=== PATIENT | male | born 1945 | race Two or more races ===

== ENCOUNTER 2016-06-04 08:13 | Day surgery (SDC) | payer OTHER ==
[2016-06-01 16:58] VITALS: BMI 31.6
[~2016-06-04] VITALS: Ht 165.1 cm; Wt 88.7 kg
[2016-06-04] VITALS (10 sets, daily range): BP systolic 119–151; BP diastolic 61–71; PULSE 64–79; RESP 12–37; Ht 165.1 cm; Wt 88.7 kg
[~2016-06-04 08:13] MED LIST: CEFAZOLIN 1 GM/50 ML (PMX) 50 ML IVPB SCH
[2016-06-04 09:05] LABS: ADD SCAN DIFF NO
[2016-06-04 09:17] LABS: BASOPHILS % 0.4 % (0.0-2.0); EOSINOPHILS # 0.1 10^3/ul (0.0-0.5); EOSINOPHILS % 1.6 % (0.0-7.0); HEMATOCRIT 36.5 % (42.0-52.0); HEMOGLOBIN 12.4 g/dl (14.0-18.0); LYMPHOCYTES # 1.8 10^3/ul (0.8-2.9); LYMPHOCYTES % 31.8 % (15.0-51.0); MEAN CORPUSCULAR HEMOGLOBIN 31.6 pg (29.0-33.0); MEAN CORPUSCULAR VOLUME 92.9 fl (82.0-101.0); MEAN PLATELET VOLUME 9.4 fl (7.4-10.4); MONOCYTE # 0.4 10^3/ul (0.3-0.9); MONOCYTES % 7.1 % (0.0-11.0); NEUTROPHIL # 3.2 10^3/ul (1.6-7.5); NEUTROPHILS % 58.6 % (39.0-77.0); PLATELET COUNT 134 10^3/UL (140-415); RED BLOOD COUNT 3.93 10^6/ul (4.70-6.10); RED CELL DISTRIBUTION WIDTH 14.4 % (11.5-14.5); WHITE BLOOD COUNT 5.5 10^3/ul (4.8-10.8)
[2016-06-04] MEDS ORDERED: FER325 PO (09:31)
[2016-06-04] MEDS ORDERED: PRED5 PO (09:31)
[2016-06-04] MEDS ORDERED: ABIR250T PO (09:31)
[2016-06-04 09:33] LABS: ALBUMIN 3.7 g/dl (3.3-4.9); ALBUMIN/GLOBULIN RATIO 1.42; BILIRUBIN,INDIRECT 0.6 mg/dl (0-1.1); BILIRUBIN,TOTAL 0.6 mg/dl (0.2-1.3); TOTAL PROTEIN 6.3 g/dl (6.1-8.1)
[2016-06-04 09:35] LABS: CALCIUM 8.9 mg/dl (8.4-10.2); CREATININE 1.08 mg/dl (0.61-1.24); POTASSIUM 4.5 mmol/L (3.5-5.1)
[2016-06-04 09:40] LABS: INR 0.91; PARTIAL THROMBOPLASTIN TIME 27.3 Sec (25.0-35.0); PROTIME 12.2 Sec (12.2-14.2)
--- NOTE | 2016-06-04 09:51 | RADRPT ---
PROCEDURE: XR Chest. CLINICAL INDICATION: Preop. TECHNIQUE: Single frontal portable chest was obtained. COMPARISON: None. FINDINGS: Cardiomediastinal silhouette appears normal There are atherosclerotic calcifications in the thoracic aorta. Pulmonary vasculature appears normal. Lung larkin appear clear. Costophrenic angles are well defined. The osseous elements appear intact. IMPRESSION: 1. Atherosclerotic calcifications in the thoracic aorta. 2. No evidence for active cardiopulmonary disease. RPTAT: AAC Physician Jacob Date Time Electronically viewed and signed by Physician Jacob on 06/04/2016 09:51 /
[2016-06-04] MEDS ORDERED: FENTAnyl 50 MCG/ML VIAL ONE (11:17)
[2016-06-04] MEDS ORDERED: ERTAPENEM SODIUM 1 GM in SOD CHLORIDE 0.9% 100 ML IVPB SCH (11:30)
[2016-06-04] MEDS ORDERED: DIPHENHYDRAMINE 50 MG INJ IV PRN (12:00)
[2016-06-04] MEDS ORDERED: LABETALOL HCL 20MG INJ IV PRN (12:00)
[2016-06-04] MEDS ORDERED: HYDROmorphONE (0.2 MG/ML) 10ML SYG IV PRN ×3 (12:00)
[2016-06-04] MEDS ORDERED: FENTAnyl 50 MCG/ML VIAL IV PRN (12:00)
[2016-06-04] MEDS ORDERED: MEPERIDINE 25 MG INJ IV PRN (12:00)
--- NOTE | 2016-06-04 12:32 | PDOCDIS ---
Discharge Instructions CONDITION Patient Condition: Good HOME CARE INSTRUCTIONS: Diet Instructions: Regular ACTIVITY: Activity Restrictions: No Restrictions Bathing Restrictions: Shower FOLLOW UP/APPOINTMENTS Appointments Tomorrow. 8:30 am for removal of cox catheter OTHER ORDERS: Other Orders: dc to home when awake and stable. Resume all preop meds without any changes. Office to call patient for continuation of IV antibiotics. LUPE PEARCE Jun 04, 2016 12:32
--- NOTE | 2016-06-04 12:52 | HP ---
DATE OF ADMISSION: 06/04/2016 HISTORY OF PRESENT ILLNESS: He is a 70-year-old male with prostate cancer diagnosed approximately 4 years ago in [facility]. He underwent a radical prostatectomy which has been complicated by retained sup rapubic tube/drain and a bladder stone with subsequent secondary recurrent multidrug-resistant urina ry tract infection. He presents today for endoscopic holmium laser lithotripsy of the 3 cm bladder stone. He is currently receiving Invanz. PAST MEDICAL HISTORY: Prostate cancer. PAST SURGICAL HISTORY: Status post radical prostatectomy, status post orchiectomy. ALLERGIES: NONE. MEDICATIONS: 1. Iron sulfate. 2. Prednisone. 3. Zytiga. PHYSICAL EXAMINATION: LUNGS: Good breath sounds bilaterally. HEART: Regular rate and rhythm. ABDOMEN: Soft, nondistended, nontender. No palpable masses. Flank, no CVA tenderness, no masses. ABDOMEN: Soft, nondistended. In the infrapubic region, a foreign body is palpable. GENITALIA: Normal shaft of penis. Scrotum is status post orchiectomy. IMPRESSION: Prostate cancer with retained infrapubic tube that does not appear to be entering into the bladder and noted to have recurrent urinary tract infections which have been associated with a b ladder stone. PLAN: Continue Invanz of which he will receive 1 g prior to surgery and subsequently for the next 2 days, endoscopic Holmium laser lithotripsy, and removal of bladder stone, pending clinical course, then would suggest removal of foreign body at a secondary sitting. How the procedure is performed, potential complications including, but not limited to, general anesthetic, risks, general surgical r isks, sepsis bleeding, urinary retention, perforation of the bladder, injury to other organs, urinar y incontinence, DVT, PE, CA stricture formation, ureteral obstruction were all discussed at length w ith patient and son. They would like to proceed as above. Dictated By: LUPE SARAVIA/NTS Conf#: [id number] DID#: [id number]
[2016-06-04] MEDS ORDERED: PROPOFOL 20 ML ONE (13:08)
[2016-06-04] MEDS ORDERED: ROCURONIUM 50 MG INJ ONE (13:08)
[2016-06-04] MEDS ORDERED: GLYCOPYRROLATE 0.4 MG INJ ONE (13:08)
[2016-06-04] MEDS ORDERED: LIDOCAINE 2% (SDV) 5 ML INJ ONE (13:08)
[2016-06-04] MEDS ORDERED: SUCCINYLCHOLINE CHLORIDE 100 MG/5 ML SYG IV ONE (13:08)
[2016-06-04] MEDS ORDERED: NEOSTIGMINE 3 MG/3 ML SYRINGE ONE (13:08)
--- NOTE | 2016-06-04 13:53 | OPR ---
DATE OF OPERATION: 06/04/2016 PREOPERATIVE DIAGNOSIS: Three cm bladder stone. POSTOPERATIVE DIAGNOSIS: Three cm bladder stone. OPERATION PERFORMED: Cystoscopy, endoscopic holmium laser lithotripsy of bladder stone. SURGEON: Lupe Sheikh MD ANESTHESIA: General. COMPLICATIONS: None. INDICATION: Sahra is a 70-year-old male with biochemical resistant prostate cancer status po st radical prostatectomy in [facility] where the subsequent routine foreign body/suprapubic tube/drain in subcutaneous space of Retz[place] and secondary recurrent urinary tract infections and a cystoscopy in t he office demonstrated a 3 cm bladder stone. The patient presented today for endoscopic holmium las er lithotripsy of the bladder stone. He has been noted to have multidrug resistant E. coli and is c urrently on Invanz. PREOPERATIVE DIAGNOSIS: Bladder stone POSTOPERATIVE DIAGNOSIS: Bladder stone. PROCEDURE: Endoscopic Holmium laser lithotripsy of bladder stone. SURGEON: Dr. Sheikh. ANESTHESIA: General. DESCRIPTION OF PROCEDURE: The patient was brought into the operating room and placed on the operati ng table in supine lithotomy position. A timeout was undertaken. Appropriate pressure points were padded and he currently received a dose of Invanz 1 gram. Rigid cystoscopy was undertaken with a 12 -degree, 30-degree and 70-degree angle lens. No abnormalities of the anterior urethra could be appr eciated. The sphincteric mechanism is intact. The prostate is surgically absent. The bladder was inspected in a systematic fashion in dependent portion of the bladder was a 3 cm stone which was ova l in nature. Bilateral ureteral orifices identified and preserved throughout the entire case. Mult iple small bladder diverticulum were additionally noted. At the dome of the bladder indentation was appreciated which would be consistent with a retained suprapubic tube noted on CT scan, this is not encroach into the bladder. Under direct vision and with the holmium precautions endoscopic holmium laser lithotripsy was undertaken with 1000 micron holmium fiber until fragmentation was obtained an d subsequently the fragmented portions of the stone were removed with an Erasto evacuator. This was repetitively performed until all fragments were removed. Repeat cystoscopy did not demonstrate any perforation of the bladder or stone fragments and 20-[place] Gallo catheter was then inserted and lef t to gravity drainage. He will follow up in the office time for removal of Gallo catheter/trial of void. An additional 4 days of Invanz 1 gram IV will be undertaken. He will be scheduled for staged removal of the suprapubic tube drain. Dictated By: LUPE SARAVIA/MELVI Conf#: [id number] DID#: [id number]
== END 2016-06-04 13:48 | disposition home or self-care (01) ==
LOC: SDS 08:13
PROVIDERS: ATTEND Urology
DX: N21.0 Calculus in bladder (principal)
CPT/HCPCS: 52317; 71010; 80053; 85025; 85610; 85651; 85730; 87086; J0330; J1335; J2175; J2710; J3010; Z7512; Z7610